=== PATIENT | female | born 1925 | race Caucasian/White ===

== ENCOUNTER 2016-03-26 08:55 | Emergency (ER) | payer MEDICARE ==
[2016-03-26 09:02] VITALS: TEMP 36.9; O2SAT 95
[2016-03-26] MEDS ORDERED: SODIUM CHLORIDE 0.9% 1000ML 500 ML IV STA (09:49)
--- NOTE | 2016-03-26 09:56 | EMERGENCY ROOM VISIT NOTE ---
History Report prepared by Sundeep: Kassie Fraire Under the Supervision of: Dr. Adrian Talley M.D. First contact with patient: 09:45 Chief Complaint: SYNCOPE Stated Complaint: SNYCOPE Nursing Triage Summary: Pt presents to room B11B via ALS from [facility]. pt has hx of dementia. medic reports that pt was sitting eating breakfast when she suffered a syncopal episode. medic reports [facility] staff reported pt is back to her baseline. pt alert and pleasant. pt able to report name but unable to state place, date, or event of what brought her to ed. History of Present Illness The patient is an 89 year old female who presents to the Emergency Room with complaints of a sudden syncopal episode that occurred just prior to arrival. Per nursing staff, the patient is from [facility] and has a history of dementia. They note that the patient had a sudden syncopal episode while at breakfast this morning. EMS reports that the patient has a history of atrial fibrillation and atrial flutter, but state that the patient's son stopped the patient's treatment. The patient states that she has been feeling fine the past several days and felt fine this morning prior to going to breakfast. She states that she is hungry right now. The history is limited secondary to dementia. Source of History: patient, EMS, nursing staff History Limited By: dementia Onset: prior to arrival Position: other (global) Quality: other (syncopal episode) Timing: other (sudden) Review of Systems ROS is limited secondary to dementia. Past Medical & Surgical Medical Problems: (1) Atrial fibrillation and flutter Family History Noncontributory secondary to age Social History Smoking Status: Former Smoker Marital Status: Housing Status: senior care Occupation Status: retired Current/Historical Medications No Active Prescriptions or Reported Meds Allergies Coded Allergies: Penicillins (Unverified Allergy, Unknown, unknown, 03/26/16) Physical Exam Vital Signs Date Time Temp Pulse Resp B/P Pulse Ox O2 Delivery O2 Flow Rate FiO2 03/26/16 12:55 102 18 119/85 94 Room Air 03/26/16 11:33 114 20 108/85 95 Room Air 03/26/16 10:16 125 15 111/83 93 103 113/68 141 99/83 03/26/16 09:08 98 03/26/16 09:02 36.9 110 18 120/76 95 Room Air 03/26/16 09:02 95 Room Air Physical Exam GENERAL: Patient is in no acute distress. HEENT: No acute trauma, normocephalic atraumatic, mucous membranes moist, no nasal congestion, no scleral icterus. NECK: No stridor, no adenopathy, no meningismus, trachea is midline. LUNGS: Clear to auscultation bilaterally, no wheeze, no rhonchi, breath sounds equal. HEART: Tachycardic and irregular. No murmurs ABDOMEN: Soft, nontender, bowel sounds positive, no hernias, no peritonitis. EXTREMITIES: No cyanosis or edema, full range of motion of all the joints without pain or difficulty, no signs for acute trauma. NEUROLOGIC: Slight dementia noted, no acute motor or sensory deficits, no focal weakness. SKIN: No rash, no jaundice, no diaphoresis. Medical Decision & Procedures ER Provider Diagnostic Interpretation: Orthostatic vital signs are positive. X ray results and stated below per my interpretation and radiologist interpretation. Other radiology results and stated below per my review and radiologist interpretation: HEAD CT NONCONTRAST CT DOSE: 537.48 mGy.cm HISTORY: EVALUATE ALTERED MENTAL STATUS/WEAKNESS TECHNIQUE: Multiaxial CT images of the head were performed without the use of intravenous contrast. Automated exposure control was utilized for this study. Comparison: None. Findings: The paranasal sinuses are clear. There are few opacified right inferior mastoid air cells. The left mastoid air cells are clear. The calvarium and skull base are intact. There is no hematoma, midline shift, acute infarct. White matter hypodensity is nonspecific but suggestive of microvascular ischemic change. The ventricles and sulci demonstrate mild age-related involutional changes. Within the right posterior fossa abutting the tentorium is a 1.4 cm extra-axial hyperdense mass. This favors a meningioma. Impression: 1. No acute intracranial abnormality. 2. A 1.4 cm extra-axial hyperdense mass within the right posterior fossa. This favors a meningioma. Electronically signed by: Esdras Caldera M.D. 03/26/2016 11:26 AM Dictated Date/Time: 03/26/2016 11:19 AM CHEST ONE VIEW PORTABLE CLINICAL HISTORY: Altered mental status COMPARISON STUDY: No previous studies for comparison. FINDINGS: The heart is enlarged. There is a left subclavian dual-chamber central venous pacemaker present. There is no focal pulmonary consolidation. There are no pleural effusions. There is slight interstitial prominence but no evidence of overt failure.[ IMPRESSION: AP portable study. Cardiomegaly. No evidence of focal pulmonary consolidation. Electronically signed by: Leonardo Fierro M.D. 03/26/2016 10:15 AM Dictated Date/Time: 03/26/2016 10:15 AM Laboratory Results 03/26/16 09:00 Red Blood Count 4.72, Mean Corpuscular Volume 97.0, Mean Corpuscular Hemoglobin 33.1, Mean Corpuscular Hemoglobin Concent 34.1, Mean Platelet Volume 11.9, Neutrophils (%) (Auto) 63.1, Lymphocytes (%) (Auto) 20.6, Monocytes (%) (Auto) 15.2, Eosinophils (%) (Auto) 0.5, Basophils (%) (Auto) 0.2, Neutrophils # (Auto ) 3.52, Lymphocytes # (Auto) 1.15, Monocytes # (Auto) 0.85, Eosinophils # (Auto ) 0.03, Basophils # (Auto) 0.01 03/26/16 09:00 Test 03/26/16 09:00 03/26/16 10:16 03/26/16 12:05 White Blood Count 5.58 K/uL (4.8-10.8) Red Blood Count 4.72 M/uL (4.2-5.4) Hemoglobin 15.6 g/dL (12.0-16.0) Hematocrit 45.8 % (37-47) Mean Corpuscular Volume 97.0 fL (80-100) Mean Corpuscular Hemoglobin 33.1 pg (25-34) Mean Corpuscular Hemoglobin Concent 34.1 g/dl (32-36) Platelet Count 153 K/uL (130-400) Mean Platelet Volume 11.9 fL (7.4-10.4) Neutrophils (%) (Auto) 63.1 % Lymphocytes (%) (Auto) 20.6 % Monocytes (%) (Auto) 15.2 % Eosinophils (%) (Auto) 0.5 % Basophils (%) (Auto) 0.2 % Neutrophils # (Auto) 3.52 K/uL (1.4-6.5) Lymphocytes # (Auto) 1.15 K/uL (1.2-3.4) Monocytes # (Auto) 0.85 K/uL (0.11-0.59) Eosinophils # (Auto) 0.03 K/uL (0-0.5) Basophils # (Auto) 0.01 K/uL (0-0.2) RDW Standard Deviation 50.4 fL (36.4-46.3) RDW Coefficient of Variation 14.0 % (11.5-14.5) Immature Granulocyte % (Auto) 0.4 % Immature Granulocyte # (Auto) 0.02 K/uL (0.00-0.02) Anion Gap 12.0 mmol/L (3-11) Estimated GFR () 38.5 Estimated GFR (Non- 33.2 BUN/Creatinine Ratio 13.0 (10-20) Calcium Level 9.3 mg/dl (8.5-10.1) Total Bilirubin 0.6 mg/dl (0.2-1) Aspartate Amino Transf (AST/SGOT) 35 U/L (15-37) Alanine Aminotransferase (ALT/SGPT) 24 U/L (12-78) Alkaline Phosphatase 125 U/L (45-117) Total Protein 7.6 gm/dl (6.4-8.2) Albumin 3.7 gm/dl (3.4-5.0) Globulin 3.9 gm/dl (2.5-4.0) Albumin/Globulin Ratio 0.9 (0.9-2) Thyroid Stimulating Hormone (TSH) 5.180 uIu/ml (0.300-4.500) Urine Color YELLOW Urine Appearance CLEAR (CLEAR) Urine pH 5.5 (4.5-7.5) Urine Specific [place] 1.018 (1.000-1.030) Urine Protein 1+ (NEG) Urine Glucose (UA) NEG (NEG) Urine Ketones TRACE (NEG) Urine Occult Blood TRACE (NEG) Urine Nitrite NEG (NEG) Urine Bilirubin NEG (NEG) Urine Urobilinogen NEG (NEG) Urine Leukocyte Esterase NEG (NEG) Urine WBC (Auto) 1-5 /hpf (0-5) Urine RBC (Auto) 0-4 /hpf (0-4) Urine Hyaline Casts (Auto) 5-10 /lpf (0-5) Urine Epithelial Cells (Auto) >30 /lpf (0-5) Urine Bacteria (Auto) NEG (NEG) Urine Renal Epithelial Cells /lpf (0-5) Urine Pathogenic Casts 1-5 GRANULAR CASTS /lpf (0) Urine Mucus PRESENT (NONE PRSENT) Bedside Troponin I 0.020 ng/ml (0-0.045) Laboratory results reviewed by me. cTnl 0.03 ng/mL ran at 1016 Medications Administered Medications (Trade) Dose Ordered Sig/Fred Route Start Time Stop Time Status Last Admin Dose Admin Sodium Chloride 500 ml @ 999 mls/hr Q31M STAT IV 03/26/16 09:49 03/26/16 10:19 DC 03/26/16 09:49 999 MLS/HR Sodium Chloride (Nss 500ml) 500 ml @ 999 mls/hr Q31M STAT IV 03/26/16 11:02 03/26/16 11:32 DC 03/26/16 11:11 999 MLS/HR ECG Indication: syncope Rate (beats per minute): 108 Rhythm: atrial flutter Findings: no acute ischemic change, other (old septal infarct) Comparison ECG Date: no prior available ED Course 0945: The patient was evaluated in room B11B. A complete history and physical exam was performed. 0949: Ordered Sodium Chloride 500 ml @ 999 mls/hr IV. 1102: Ordered Sodium Chloride 500 ml @ 999 mls/hr IV. 1201: I reevaluated the patient and she is resting comfortably. Her family is at her bedside and I've discussed the exam findings with them so far. They verbalized complete understanding and agreement with the treatment plan. 1233: I reevaluated the patient and she is resting comfortably. I discussed the exam findings with her family and I discussed the treatment plan. They verbalized complete understanding and agreement. They are ready to take the patient home. Medical Decision The patient is an 89 year old female who presents to the ED with complaints of a syncopal episode. Differential diagnoses considered include dysrhythmia, [place], stroke, intracranial bleeding, hypotension, dehydration, anemia, electrolyte imbalance, UTI. There is no leukocytosis or concerning anemia. No significant electrolyte abnormality, kidney failure or hepatitis. EKG shows atrial fibrillation/atrial flutter, no acute ischemia. Cardiac enzyme testing 2 is not suggestive of acute cardiac injury. Brain CT shows no acute bleed or mass effect. Chest x- ray does not show pneumonia or CHF. Orthostatic vital signs were positive. Urinalysis is not suggestive of infection but more so contamination. The patient received IV saline, she has done well. She did eat breakfast. I think the patient had a syncopal event from being dehydrated. Her family has arrived and they confirm the patient does not drink enough fluids. The patient was on treatment for A. fib but her medications have been discontinued at their request. The patient has no complaints at present and she is doing well. I do think she can be discharged. Increased hydration was suggested. If worsening she can return. I discussed the meningioma noted on CT scan, this can be followed, this is not in need of acute attention. Impression Primary Impression: Syncope Additional Impressions: Dehydration Atrial fibrillation Scribe Attestation The scribe's documentation has been prepared under my direction and personally reviewed by me in its entirety. I confirm that the note above accurately reflects all work, treatment, procedures, and medical decision making performed by me. Departure Information Dispostion Home / Self-Care Prescriptions No Active Prescriptions or Reported Meds [facility] Forms HOME CARE DOCUMENTATION FORM, IMPORTANT VISIT INFORMATION Patient Instructions My [facility] Additional Instructions encourage hydration--she was dehydrated today lab testing today was all ok return for worsening symptoms brain CT should a small meningioma--this will just need followed and is unrelated to her passing out spell today Problem Qualifiers
[2016-03-26 10:05] LABS: BASO % 0.2 %; BASO ABS # 0.01 K/uL (0-0.2); COMPLETE YES; EOS % 0.5 %; HEMATOCRIT 45.8 % (37-47); IG% 0.4 %; LYMPH % 20.6 %; LYMPH ABS # 1.15 K/uL (1.2-3.4); MEAN CORPUSCULAR HEMOGLOBIN 33.1 pg (25-34); MEAN CORPUSCULAR HGB CONC 34.1 g/dl (32-36); MEAN PLATELET VOLUME 11.9 fL (7.4-10.4); MONO % 15.2 %; NEUT % 63.1 %; PLATELET COUNT 153 K/uL (130-400); RED BLOOD COUNT 4.72 M/uL (4.2-5.4); WHITE BLOOD COUNT 5.58 K/uL (4.8-10.8)
[2016-03-26 10:13] LABS: ALT/SGPT 24 U/L (12-78); BLOOD UREA NITROGEN 18 mg/dl (7-18); CALCIUM 9.3 mg/dl (8.5-10.1); CARBON DIOXIDE 26 mmol/L (21-32); CHLORIDE 100 mmol/L (98-107); GLUCOSE 95 mg/dl (70-99); POTASSIUM 3.9 mmol/L (3.5-5.1); SODIUM 138 mmol/L (136-145)
--- NOTE | 2016-03-26 10:17 | DIAGNOSTIC IMAGING REPORT ---
CHEST ONE VIEW PORTABLE CLINICAL HISTORY: Altered mental status COMPARISON STUDY: No previous studies for comparison. FINDINGS: The heart is enlarged. There is a left subclavian dual-chamber central venous pacemaker present. There is no focal pulmonary consolidation. There are no pleural effusions. There is slight interstitial prominence but no evidence of overt failure.[ IMPRESSION: AP portable study. Cardiomegaly. No evidence of focal pulmonary consolidation. Electronically signed by: Leonardo Fierro M.D. 03/26/2016 10:15 AM Dictated Date/Time: 03/26/2016 10:15 AM
[2016-03-26 10:32] LABS: ALB/GLOB RATIO 0.9 (0.9-2); ALKALINE PHOSPHATASE 125 U/L (45-117); AST/SGOT 35 U/L (15-37)
[2016-03-26 10:52] LABS: URINE APPEARANCE CLEAR (CLEAR); URINE BILIRUBIN NEG (NEG); URINE COLOR YELLOW; URINE EPITHELIAL CELL AUTO >30 /lpf (0-5); URINE NITRITE NEG (NEG); URINE PH 5.5 (4.5-7.5); URINE SPECIFIC GRAVITY 1.018 (1.000-1.030); UROBILINOGEN NEG (NEG); ZZURINE CULT IF INDIC CATH NO
[2016-03-26 10:58] LABS: MANUAL MICROSCOPIC REQUIRED? NO; REVIEW REQ? YES
[2016-03-26] MEDS ORDERED: SODIUM CHLORIDE 0.9% 500ML 500 ML IV STA (11:02)
[2016-03-26 11:07] LABS: URINE PATH CASTS 1-5 GRANULAR CASTS /lpf (0)
[2016-03-26 11:08] LABS: URINE MUCUS PRESENT (NONE PRSENT)
--- NOTE | 2016-03-26 11:28 | DIAGNOSTIC IMAGING REPORT ---
HEAD CT NONCONTRAST CT DOSE: 537.48 mGy.cm HISTORY: EVALUATE ALTERED MENTAL STATUS/WEAKNESS TECHNIQUE: Multiaxial CT images of the head were performed without the use of intravenous contrast. Automated exposure control was utilized for this study. Comparison: None. Findings: The paranasal sinuses are clear. There are few opacified right inferior mastoid air cells. The left mastoid air cells are clear. The calvarium and skull base are intact. There is no hematoma, midline shift, acute infarct. White matter hypodensity is nonspecific but suggestive of microvascular ischemic change. The ventricles and sulci demonstrate mild age-related involutional changes. Within the right posterior fossa abutting the tentorium is a 1.4 cm extra-axial hyperdense mass. This favors a meningioma. Impression: 1. No acute intracranial abnormality. 2. A 1.4 cm extra-axial hyperdense mass within the right posterior fossa. This favors a meningioma. Electronically signed by: Esdras Caldera M.D. 03/26/2016 11:26 AM Dictated Date/Time: 03/26/2016 11:19 AM
[2016-03-26 12:55] VITALS: BP 119/85; PULSE 102; O2SAT 94
== END 2016-03-26 13:05 | disposition home or self-care (01) ==
LOC: EDBD 08:55 → C.EDB 08:58
DX: R55 Syncope and collapse (principal); E86.0 Dehydration; I48.91 Unspecified atrial fibrillation; Z87.891 Personal history of nicotine dependence

== ENCOUNTER → 2016-04-24 | Outpatient (CLI) | payer MEDICARE ==
[2016-04-24 09:49] LABS: BASO % 0.4 %; BASO ABS # 0.03 K/uL (0-0.2); COMPLETE YES; EOS % 8.2 %; HEMATOCRIT 39.5 % (37-47); IG% 0.1 %; LYMPH % 35.5 %; LYMPH ABS # 2.73 K/uL (1.2-3.4); MEAN CELL VOLUME 98.5 fL (80-100); MEAN CORPUSCULAR HEMOGLOBIN 31.2 pg (25-34); MEAN CORPUSCULAR HGB CONC 31.6 g/dl (32-36); MEAN PLATELET VOLUME 11.4 fL (7.4-10.4); MONO % 11.3 %; NEUT % 44.5 %; PLATELET COUNT 240 K/uL (130-400); RED BLOOD COUNT 4.01 M/uL (4.2-5.4); WHITE BLOOD COUNT 7.68 K/uL (4.8-10.8)
[2016-04-24 10:00] LABS: BLOOD UREA NITROGEN 20 mg/dl (7-18); BUN/CREATININE RATIO 15.7 (10-20); CALCIUM 8.5 mg/dl (8.5-10.1); CARBON DIOXIDE 28 mmol/L (21-32); CHLORIDE 109 mmol/L (98-107); GLUCOSE 79 mg/dl (70-99); POTASSIUM 4.6 mmol/L (3.5-5.1); SODIUM 145 mmol/L (136-145)
--- NOTE | 2016-04-25 12:57 | CODING QUERY NO DIAGNOSIS ---
: 1925 TREATMENT RENDERED WITHOUT A DIAGNOSIS To promote full compliance with coding requirements relating to patient care, physician participation is requested in all cases of draw hand uncertainty. Please assist us with providing a diagnosis/symptom for the test(s) below: A diagnosis/symptom was not documented on your Order. A valid diagnosis/symptom is required to bill all insurances. Please remember that we are unable to code a diagnosis of rule out, probable, possible, questionable, or suspected. Tests that require a diagnosis: DOS: 04/24/16 * Partial Renal Profile DIAGNOSIS: * Thyroid Stimulating Hormone DIAGNOSIS: * CBC with Auto Differential DIAGNOSIS: Provider Signature: Date: Thank you Clarisa Jara Health Information Management Once completed, please kindly fax back to [phone] For questions please call [phone]
--- NOTE | 2016-04-27 13:58 | CODING QUERY NO DIAGNOSIS ---
: 1925 TREATMENT RENDERED WITHOUT A DIAGNOSIS To promote full compliance with coding requirements relating to patient care, physician participation is requested in all cases of manager spring uncertainty. Please assist us with providing a diagnosis/symptom for the test(s) below: A diagnosis/symptom was not documented on your Order. A valid diagnosis/symptom is required to bill all insurances. Please remember that we are unable to code a diagnosis of rule out, probable, possible, questionable, or suspected. Tests that require a diagnosis: DOS: 04/24/16 * Partial Renal Profile DIAGNOSIS: Provider Signature: Date: Thank you Clarisa Jara Health Information Management Once completed, please kindly fax back to [phone] For questions please call [phone]
== END | disposition home or self-care (01) ==
LOC: C.LABOUTLO 09:20
PROVIDERS: ATTEND Internal Medicine
DX: N28.9 Disorder of kidney and ureter, unspecified (principal); E03.9 Hypothyroidism, unspecified; D64.9 Anemia, unspecified

== ENCOUNTER → 2016-05-02 | Outpatient (CLI) | payer MEDICARE ==
[2016-05-02 10:28] LABS: BLOOD UREA NITROGEN 19 mg/dl (7-18); BUN/CREATININE RATIO 17.2 (10-20); CALCIUM 8.5 mg/dl (8.5-10.1); CARBON DIOXIDE 26 mmol/L (21-32); CHLORIDE 103 mmol/L (98-107); GLUCOSE 104 mg/dl (70-99); POTASSIUM 3.8 mmol/L (3.5-5.1); SODIUM 139 mmol/L (136-145)
--- NOTE | 2016-05-03 21:29 | CODING QUERY NO DIAGNOSIS ---
: 1925 TREATMENT RENDERED WITHOUT A DIAGNOSIS To promote full compliance with coding requirements relating to patient care, physician participation is requested in all cases of instantizer operator uncertainty. Please assist us with providing a diagnosis/symptom for the test(s) below: A diagnosis/symptom was not documented on your Order. A valid diagnosis/symptom is required to bill all insurances. Please remember that we are unable to code a diagnosis of rule out, probable, possible, questionable, or suspected. Tests that require a diagnosis: DOS: 05/02/16 * Partial Renal Profile DIAGNOSIS: Provider Signature: Date: Thank you Clarisa Jara Health Information Management Once completed, please kindly fax back to [phone] For questions please call [phone]
== END | disposition home or self-care (01) ==
LOC: C.LABOUTLO 10:07
PROVIDERS: ATTEND Internal Medicine
DX: N28.9 Disorder of kidney and ureter, unspecified (principal)